=== PATIENT | male | born 1950 | race Two or more races ===

== ENCOUNTER 2018-03-14 09:02 | Outpatient (CLI) | payer OTHER | END 2018-03-14 09:10 | disposition home or self-care (01) | LOC: LAB 09:02 | DX: R97.20 Elevated prostate specific antigen [PSA] (principal); N40.1 Benign prostatic hyperplasia with lower urinary tract symptoms ==

== ENCOUNTER 2018-10-31 09:54 | Outpatient (CLI) | payer OTHER | END 2018-10-31 10:51 | disposition home or self-care (01) | LOC: LAB 09:54 | DX: R97.20 Elevated prostate specific antigen [PSA] (principal); R31.9 Hematuria, unspecified ==